=== PATIENT | female | born 2000 | race Caucasian/White ===

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

== ENCOUNTER 2022-01-10 19:30 | Emergency (ER) | payer OTHER ==
[~2022-01-10] VITALS: Ht 154.9 cm; Wt 48.6 kg
[~2022-01-10 19:30] MED LIST changes: +AZITHROMYCIN500 MG PO; +IBUPROFEN200 MG PO
[2022-01-10 20:54] LABS: URINE BILIRUBIN - DIPSTICK NEGATIVE (NEGATIVE); URINE BLOOD DIPSTICK NEGATIVE (NEGATIVE); URINE COLOR YELLOW; URINE GLUCOSE - DIPSTICK NEGATIVE (NEGATIVE); URINE KETONE NEGATIVE (NEGATIVE); URINE LEUK ESTERASE NEGATIVE (NEGATIVE); URINE PROTEIN - DIPSTICK NEGATIVE (NEG-TRACE); URINE SPECIFIC GRAVITY >=1.030; URINE UROBILINOGEN - DIPSTICK 0.2 E.U./dL (0.2)
[2022-01-10 20:59] LABS: HEMATOCRIT 40.6 % (37.0-47.0); HEMOGLOBIN 13.1 g/dl (12.0-16.0); MEAN CELL VOLUME 95.8 fL CALC (80.0-100.0); MEAN CORPUSCULAR HGB 30.9 pG CALC (26.0-32.0); MEAN CORPUSCULAR HGB CONC 32.3 g/dL CAL (32.0-36.0); NEUT# 4.31 thou/uL (2.00-7.15); RED BLOOD COUNT 4.24 mill/uL (4.20-5.60); RED CELL DISTRI WIDTH 13.1 % (11.5-15.5)
[2022-01-10 21:04] LABS: ALBUMIN 4.7 g/dL (3.2-5.0); AMYLASE 81 u/l (30-110); ANION GAP 13 (6-22 (CALC)); BUN 17 mg/dL (8-21); BUN/CREATININE RATIO 26 (12-20 (CALC)); CARBON DIOXIDE 25 mmol/l (22-30); CHLORIDE 107 mmol/l (95-108); CREATININE 0.6 mg/dL (0.5-1.0); GFR > 60 ML/MIN (>=60 (CALC)); GFR FOR AFR.AMER. > 60 ML/MIN (>=60 (CALC)); LIPASE 73 u/l (23-300); POTASSIUM 3.9 mmol/l (3.5-5.1); SGOT/AST 24 u/l (14-36); SODIUM 140 mmol/l (137-146); TOTAL PROTEIN 7.8 g/dL (6.3-8.2)
[2022-01-10 21:04] LABS: URINE NITRITE - DIPSTICK NEGATIVE (Negative)
[2022-01-10 21:05] LABS: ALKALINE PHOSPHATASE 80 u/l (38-126); BILIRUBIN, TOTAL 0.4 mg/dL (0.0-1.4)
[2022-01-10] MEDS ORDERED: ONDANSETRON4 MG PO (21:36)
[2022-01-10 21:47] VITALS: BP 102/60
== END 2022-01-10 21:50 | disposition home or self-care (01) ==
LOC: ED 19:30
PROVIDERS: Emergency Medicine
DX: R11.2 Nausea with vomiting, unspecified (principal); Z20.822 Contact with and (suspected) exposure to COVID-19